=== PATIENT | female | born 2000 | race Two or more races ===

== ENCOUNTER 2022-09-05 10:51 | Emergency (ER) | payer OTHER ==
[~2022-09-05] VITALS: Ht 165.1 cm; Wt 62.1 kg
[2022-09-05] MEDS ORDERED: CORTISPORIN EAR10 M1 OPHT (11:07)
== END 2022-09-05 11:42 | disposition home or self-care (01) ==
LOC: ER 10:51 → EMR PED 10:56
DX: H83.02 Labyrinthitis, left ear (principal); H60.92 Unspecified otitis externa, left ear